=== PATIENT | female | born 1990 | race African-American/Black ===

== ENCOUNTER → 2017-07-15 | Outpatient (REF) | payer OTHER ==
[2017-07-15 18:47] LABS: ALBUMIN/GLOBULIN RATIO 1.14 (1.00-1.93); ALKALINE PHOSPHATASE 63 U/L (45-117); ALT/SGPT 20 U/L (12-78); ANION GAP 8 MEQ/L (8-16); AST/SGOT 17 U/L (7-37); BILIRUBIN,TOTAL 0.7 MG/DL (0.2-1.0); BLOOD UREA NITROGEN 11 MG/DL (7-18); CALCIUM LEVEL 8.8 MG/DL (8.5-10.1); CARBON DIOXIDE LEVEL 25 MEQ/L (21-32); CHLORIDE LEVEL 108 MEQ/L (98-107); CHOLESTEROL LEVEL 141 MG/DL (<200); CREATININE FOR GFR 0.63 MG/DL (0.55-1.30); GLOMERULAR FILTRATION RATE > 60.0 (>60); GLUCOSE, FASTING 87 MG/DL (70-100); HDL CHOLESTEROL 47 MG/DL (>40); LDL CHOLESTEROL 80.4 MG/DL (<100); NON-HDL-C 94 MG/DL; POTASSIUM SERUM 4.7 MEQ/L (3.5-5.1); SODIUM LEVEL 141 MEQ/L (136-145); TOTAL PROTEIN 7.5 GM/DL (6.4-8.2); TRIGLYCERIDES LEVEL 68 MG/DL (<150)
[2017-07-15 19:01] LABS: ESTIMATED AVERAGE GLUCOSE 111 MG/DL (60-110); HEMOGLOBIN A1c 5.5 %
== END ==
LOC: M SFHCLERA 10:52
DX: E66.01 Morbid (severe) obesity due to excess calories (principal)
CPT/HCPCS: 84443

== ENCOUNTER → 2017-08-26 | Outpatient (REF) | payer OTHER | LOC: M SFHCLERA 09:42 | DX: Z01.411 Encounter for gynecological examination (general) (routine) with abnormal findings (principal); R87.5 Abnormal microbiological findings in specimens from female genital organs | CPT/HCPCS: G0123 ==

== ENCOUNTER → 2018-01-19 | Outpatient (REF) | payer OTHER ==
[2018-01-19 16:59] LABS: HEMATOCRIT 38.2 % (36.0-47.0); MEAN CORPUSCULAR HGB CONC 31.4 g/dl (32.0-36.5); MEAN CORPUSCULAR VOLUME 82.7 fl (80.0-96.0); PLATELET COUNT, AUTOMATED 360 10^3/uL (150-450); RED BLOOD COUNT 4.62 10^6/uL (4.00-5.40); RED CELL DISTRIBUTION WIDTH 12.7 % (11.5-14.5); WHITE BLOOD COUNT 4.6 10^3/uL (4.0-10.0)
[2018-01-19 17:01] LABS: ALBUMIN 4.1 GM/DL (3.2-5.2); ALBUMIN/GLOBULIN RATIO 1.21 (1.00-1.93); ALKALINE PHOSPHATASE 67 U/L (45-117); ALT/SGPT 21 U/L (12-78); ANION GAP 6 MEQ/L (8-16); AST/SGOT 14 U/L (7-37); BILIRUBIN,TOTAL 0.6 MG/DL (0.2-1.0); BLOOD UREA NITROGEN 10 MG/DL (7-18); CALCIUM LEVEL 9.3 MG/DL (8.5-10.1); CARBON DIOXIDE LEVEL 26 MEQ/L (21-32); CHLORIDE LEVEL 106 MEQ/L (98-107); GLOMERULAR FILTRATION RATE > 60.0 (>60); GLUCOSE, FASTING 87 MG/DL (70-100); POTASSIUM SERUM 4.5 MEQ/L (3.5-5.1); SODIUM LEVEL 138 MEQ/L (136-145); TOTAL PROTEIN 7.5 GM/DL (6.4-8.2)
[2018-01-19 17:02] LABS: INR 1.04; PROTHROMBIN TIME 13.7 SECONDS (12.1-14.4)
== END ==
LOC: M SFHCLERA 10:56
DX: Z01.818 Encounter for other preprocedural examination (principal)

== ENCOUNTER → 2018-09-03 | Outpatient (CLI) | payer OTHER ==
[2018-09-03 20:11] LABS: BASO % 0.7 % (0.0-1.0); EOS # 0.1 10^3/uL (0.0-0.50); EOS % 1.9 % (0.0-3.0); HEMATOCRIT 36.6 % (36.0-47.0); HEMOGLOBIN 11.5 g/dl (12.0-15.5); LYMPH # 1.9 10^3/uL (1.5-6.5); LYMPH % 43.1 % (24.0-44.0); MEAN CORPUSCULAR HEMOGLOBIN 26.4 pg (27.0-33.0); MEAN CORPUSCULAR HGB CONC 31.4 g/dl (32.0-36.5); MEAN CORPUSCULAR VOLUME 84.1 fl (80.0-96.0); MONO # 0.5 10^3/uL (0.0-0.8); NEUTROPHILS # 1.9 10^3/uL (1.8-7.7); NEUTROPHILS % 43.3 % (36.0-66.0); PLATELET COUNT, AUTOMATED 325 10^3/uL (150-450); RED BLOOD COUNT 4.35 10^6/uL (4.00-5.40); WHITE BLOOD COUNT 4.3 10^3/uL (4.0-10.0)
[2018-09-03 20:12] LABS: ALBUMIN 3.9 GM/DL (3.2-5.2); ALT/SGPT 18 U/L (12-78); BILIRUBIN,TOTAL 0.6 MG/DL (0.2-1.0); BLOOD UREA NITROGEN 13 MG/DL (7-18); CALCIUM LEVEL 9.1 MG/DL (8.5-10.1); CARBON DIOXIDE LEVEL 28 MEQ/L (21-32); CHLORIDE LEVEL 106 MEQ/L (98-107); CREATININE FOR GFR 0.71 MG/DL (0.55-1.30); FERRITIN 96 NG/ML (8-252); GLOMERULAR FILTRATION RATE > 60.0 (>60); GLUCOSE, FASTING 82 MG/DL (70-100); IRON (FE) 76 UG/DL (50-170); MAGNESIUM LEVEL 2.2 MG/DL (1.8-2.4); PERCENT SATURATION 27.5 % (13.2-45.0); PHOSPHORUS LEVEL 3.5 MG/DL (2.5-4.9); POTASSIUM SERUM 4.6 MEQ/L (3.5-5.1); SODIUM LEVEL 140 MEQ/L (136-145); TOTAL IRON BINDING CAPACITY 276 UG/DL (250-450); TOTAL PROTEIN 7.3 GM/DL (6.4-8.2)
[2018-09-03 20:15] LABS: HEMATOCRIT 36.6 % (36.0-47.0)
[2018-09-03 20:22] LABS: TOTAL 25(OH) VITAMIN D 17.3 NG/ML (30.0-100.0); VITAMIN B12 LEVEL 515 PG/ML (247-911)
[2018-09-03 20:42] LABS: HEMOGLOBIN A1c 5.4 %
== END ==
LOC: M LRY 16:26
PROVIDERS: ATTEND Physician Assistant
DX: K91.2 Postsurgical malabsorption, not elsewhere classified (principal); Z98.84 Bariatric surgery status; E55.9 Vitamin D deficiency, unspecified

== ENCOUNTER 2018-11-14 14:47 | Inpatient (IN) | payer OTHER ==
[~2018-11-14] VITALS: Ht 154.9 cm; Wt 91.4 kg
[2018-11-14 15:52] LABS: BASO % 0.2 % (0.0-1.0); EOS # 0.1 10^3/uL (0.0-0.5); EOS % 0.7 % (0.0-3.0); HEMATOCRIT 35.9 % (36.0-47.0); HEMOGLOBIN 11.3 g/dl (12.0-15.5); LYMPH # 1.4 10^3/uL (1.5-5.0); LYMPH % 14.7 % (24.0-44.0); MEAN CORPUSCULAR HEMOGLOBIN 26.5 pg (27.0-33.0); MEAN CORPUSCULAR HGB CONC 31.5 g/dl (32.0-36.5); MEAN CORPUSCULAR VOLUME 84.3 fl (80.0-96.0); MONO # 1.3 10^3/uL (0.0-0.8); MONO % 13.8 % (0.0-5.0); NEUTROPHILS # 6.9 10^3/uL (1.5-8.5); NEUTROPHILS % 70.3 % (36.0-66.0); PLATELET COUNT, AUTOMATED 345 10^3/uL (150-450); RED BLOOD COUNT 4.26 10^6/uL (4.00-5.40); WHITE BLOOD COUNT 9.7 10^3/uL (4.0-10.0)
[2018-11-14 16:37] LABS: BLOOD UREA NITROGEN 8 MG/DL (7-18); CALCIUM LEVEL 9.2 MG/DL (8.5-10.1); CARBON DIOXIDE LEVEL 27 MEQ/L (21-32); CHLORIDE LEVEL 104 MEQ/L (98-107); CREATININE FOR GFR 0.75 MG/DL (0.55-1.30); GLOMERULAR FILTRATION RATE > 60.0 (>60); GLUCOSE, FASTING 93 MG/DL (70-100); POTASSIUM SERUM 4.3 MEQ/L (3.5-5.1); SODIUM LEVEL 135 MEQ/L (136-145)
[2018-11-14] MEDS ORDERED: ISOVUE-370 76% 100ML VIAL (Q9967) As Ordered ONE (16:40)
--- NOTE | 2018-11-14 17:02 | REP ---
Clinical: Cellulitis. Rule out abscess. Technique: Axial contrast enhanced images of the pelvis with coronal and sagittal re-formations using 100 ml Isovue 370 intravenous contrast material. Findings: There is a phlegmonous collection with surrounding subcutaneous infiltration and skin induration at the midline gluteal region (images 35-65) which is consistent with cellulitis and possible forming abscess. No drainable collection/discrete abscess is yet formed. Remainder of the pelvis including bladder, uterus with IUD, bilateral adnexa, and visualized portions of the small and large bowel appear normal. Normal appendix identified in the right lower quadrant. Visualized vascular structures are normal. Osseous structures are intact. Impression: Findings suggest cellulitis with focal area of phlegmon. No obvious discrete drainable collection/abscess is appreciated by current examination. Electronically Signed by Yonatan Alexandra MD 11/14/2018 04:53 P
[2018-11-14] MEDS ORDERED: CLEO300C2 PO (18:28)
--- NOTE | 2018-11-14 18:38 | HPEPDOC ---
General Date of Admission 11/14/2018 Date of Service: Nov 14, 2018 Chief Complaint The patient is a 28-year-old female who presented to the emergency room after failing antibiotic treatment for of midline gluteal cellulitis History of Present Illness Patient is a 28-year-old female with no significant PMHx who presented to the ER after failing antibiotic therapy. Patient reports that last Thursday she began to experience pain with sitting that continued to worsen. She had noticed that she had swelling around the top of her gluteal cleft. Patient reported that she had visited urgent care for antibiotic therapy and was prescribed Bactrim. Patient had failed to improve with antibiotic therapy and subsequently had a follow-up physical on Thursday, and her antibiotics were changed to clindamycin. Patient has failed to improve with new antibiotic therapy and his come to the emergency room for further evaluation. Patient reports that shes been experiencing fevers and chills. Temperature noted was on Thursday at 101.0 Fahrenheit. Patient denies nausea, vomiting, chest pain, shortness breath, palpitations, abdominal pain, diarrhea or discomfort with urination. Patient does report constipation for 1 week duration. Patient reports a poor appetite but is unaware of any recent change in her weight. Home Medications Scheduled Clindamycin Hcl (Cleocin HCl) 300 Mg Capsule, 300 MG PO Q8H, (Reported) STARTED 11/13/18 Allergies Coded Allergies: No Known Allergies (Unverified , 11/14/18) Past Medical History Medical History Patient denies any past medical history Surgical History Patient has had a gastric sleeve procedure performed February 2018 and has had a weight loss of 45 pounds since that point Family History - Mother with history of high blood pressure - Fathers medical history is unknown Social History - Denies the use of alcohol, tobacco or illicit drugs - Denies recent travel or sick contacts - Lives with and 3 children - Occupation; currently unemployed Review of Systems Other systems 10 point review of systems complete, all negative otherwise stated in HPI Vital Signs - Vitals: BP 131/74, HR 97, RR 16, Sat 99%RA, Temp 98.1F - General: Lying in bed, No acute distress, Speaking in full sentences, AAOx3 - HEENT: NC, AT, PERRLA, EOMI - CVS: RRR, +S1S2, - Murmurs / rubs / gallops - Lungs: Fair air entry bilaterally, No appreciable wheezing / rales / rhonchi - Abdomen: Soft, Non-distended, Non-tender - Extremities: No lower extremity edema, No calf tenderness - Neuro: No focal motor or sensory deficit - Skin: Bilateral sides of gluteal cleft with induration, swelling and tenderness, no appreciable drainage, midline superior gluteal cleft without any swelling, induration or tenderness noted Laboratory Data Labs 24H Laboratory Tests 2 11/14/18 15:34: Immature Granulocyte % (Auto) 0.3, White Blood Count 9.7, Red Blood Count 4.26, Hemoglobin 11.3L, Hematocrit 35.9L, Mean Corpuscular Volume 84.3, Mean Corpuscular Hemoglobin 26.5L, Mean Corpuscular Hemoglobin Concent 31.5L, Red Cell Distribution Width 12.3, Platelet Count 345, Neutrophils (%) (Auto) 70.3H, Lymphocytes (%) (Auto) 14.7L, Monocytes (%) (Auto) 13.8H, Eosinophils (%) (Auto) 0.7, Basophils (%) (Auto) 0.2, Neutrophils # (Auto) 6.9, Lymphocytes # (Auto) 1.4L, Monocytes # (Auto) 1.3H, Eosinophils # (Auto) 0.1, Basophils # (Auto) 0.0, Nucleated Red Blood Cells % (auto) 0.0, Anion Gap 4L, Glomerular Filtration Rate > 60.0, Blood Urea Nitrogen 8, Creatinine 0.75, Sodium Level 135L, Potassium Level 4.3, Chloride Level 104, Carbon Dioxide Level 27, Calcium Level 9.2 CBC/BMP Laboratory Tests 11/14/18 15:34 Red Blood Count 4.26, Mean Corpuscular Volume 84.3, Mean Corpuscular Hemoglobin 26.5 L, Mean Corpuscular Hemoglobin Concent 31.5 L, Red Cell Distribution Width 12.3, Neutrophils (%) (Auto) 70.3 H, Lymphocytes (%) (Auto) 14.7 L, Monocytes (%) (Auto) 13.8 H, Eosinophils (%) (Auto) 0.7, Basophils (%) (Auto) 0.2, Neutrophils # (Auto) 6.9, Lymphocytes # (Auto) 1.4 L, Monocytes # (Auto) 1.3 H, Eosinophils # (Auto) 0.1, Basophils # (Auto) 0.0, Calcium Level 9.2 Plan / VTE VTE Prophylaxis Ordered?: Yes Plan Plan Gluteal phlegmon - Patient has failed antibiotic therapy as an outpatient with Bactrim and clindamycin - As an outpatient, she has reported fevers and chills - Has presented to the ER with gluteal cleft swelling; no drainage noted - No significant leukocytosis - CT abdomen / pelvis 11/14: Findings suggest cellulitis with focal area of phlegmon. No obvious discrete drainable collection/abscess is appreciated by current examination. - Will admit the patient for IV antibiotic therapy with Ceftaroline (MRSA coverage) after failing oral therapy as an outpatient - Case has been discussed with general surgery, Dr. Rao - will evaluate the patient on consultation Normocytic anemia - Hemoglobin appears to be at baseline compared to 3 months prior - Will continue to monitor DVT prophylaxis - Will start SANIA Gibson MD Nov 14, 2018 18:38
[2018-11-14] MEDS: NS 1,000 ML IV SCH (19:45)
[2018-11-14] MEDS: CEFTAROLINE FOSAMIL 600 MG in D5W MINI-BAG PLUS 50 ML IV SCH (19:45)
[2018-11-14 20:05] VITALS: BP 130/86
[2018-11-14] MEDS: ACETAMINOPHEN TAB 650MG DOSE (2X325MG) PO PRN ×2 (20:36→21:31)
[2018-11-15] VITALS (9 sets, daily range): BP systolic 101–121; BP diastolic 58–73
[2018-11-15] MEDS: ACETAMINOPHEN TAB 650MG DOSE (2X325MG) PO PRN ×2 (06:03→20:37)
[2018-11-15] MEDS: NS 1,000 ML IV SCH ×2 (06:08→20:00)
[2018-11-15] MEDS: CEFTAROLINE FOSAMIL 600 MG in D5W MINI-BAG PLUS 50 ML IV SCH ×2 (06:41→17:36)
[2018-11-15 08:41] LABS: BASO % 0.4 % (0.0-1.0); EOS # 0.1 10^3/uL (0.0-0.5); EOS % 0.6 % (0.0-3.0); HEMATOCRIT 32.3 % (36.0-47.0); HEMOGLOBIN 10.3 g/dl (12.0-15.5); LYMPH # 2.3 10^3/uL (1.5-5.0); LYMPH % 23.9 % (24.0-44.0); MEAN CORPUSCULAR HEMOGLOBIN 26.1 pg (27.0-33.0); MEAN CORPUSCULAR HGB CONC 31.9 g/dl (32.0-36.5); MONO # 1.1 10^3/uL (0.0-0.8); MONO % 11.8 % (0.0-5.0); NEUTROPHILS # 6.1 10^3/uL (1.5-8.5); PLATELET COUNT, AUTOMATED 352 10^3/uL (150-450); RED BLOOD COUNT 3.94 10^6/uL (4.00-5.40); WHITE BLOOD COUNT 9.6 10^3/uL (4.0-10.0)
--- NOTE | 2018-11-15 08:44 | IPNPDOC ---
Subjective Date Seen The patient was seen on 11/15/18. Subjective Chief Complaint/HPI Patient reported pos for fever, chills, and pain in the gluteal region in b/l buttocks. Reported mild lightheadedness when standing for long time; denies any chest pain, palpitation, N/V, abd pain, diarrhea, or blood in stool. Pt reported she had 1 bowel movement today. Denies seeing any skin breakdown/opening prior to hospital admission General: Reports: Chills, Night Sweats Constitutional: Reports: Chills, Fever, Night Sweats Skin: Reports: Other (Denies drainage or skin opening); Denies: Breakdown Pulmonary: Denies: Dyspnea Cardiovascular: Denies: Chest Pain, Palpitations Gastrointestinal: Denies: Nausea, Vomiting, Abdominal Pain, Diarrhea, Hematochezia Musculoskeletal: Reports: Other Symptoms (buttock pain) Objective Physical Examination General Exam: Positive: Alert, Cooperative, No Acute Distress, Mild Distress Eye Exam: Positive: Conjunctiva & lids normal ENT Exam: Positive: Atraumatic, Mucous membr. moist/pink Neck Exam: Positive: Supple Chest Exam: Positive: Clear to auscultation, Normal air movement; Negative: Rales, Rhonchi, Wheezing Heart Exam: Positive: Tachycardic, Regular Rhythm; Negative: Murmurs Abdomen Exam: Positive: Normal bowel sounds, Soft; Negative: Tenderness Extremity Exam: Positive: Normal pulses Skin Exam: Positive: Other skin issue (No obvious erythema noted; areas of induration/fullness palpable in b/l buttock region near midline/gluteal cleft with tenderness to palpation); Negative: Breakdown Neuro Exam: Positive: Normal Speech Psych Exam: Positive: Mental status NL, Mood NL, Memory Intact, Oriented x 3 Assessment /Plan Assessment 1. Gluteal phlegmon likely 2/2 pilonidal cyst - Fever and chills prior to admission reported; S/p failed antibiotic therapy as an outpatient with Bactrim and clindamycin - Has presented to the ER with gluteal cleft swelling; no drainage noted - No significant leukocytosis - CT abd/pelvis 11/14 suggested cellulitis with focal area of phlegmon. No obvious skin opening/drainage/abscess on exam - Cont pt on IV Ceftaroline for MRSA coverage at this time after failing oral therapy as an outpatient. MRSA PCR pending. - Fever and chills. RR and BP stable w/o mental status change. Blood cx X2 pend ing. - General surgery Dr. Rao consulted-planned OR procedure/I&D for gluteal phlegmon 2. Normocytic anemia - 11.3 to 10.3 today. Hemoglobin 09/01 at 11.5 - Pt reported mild dizziness with prolonged standing; denies any dyspnea or blood in stool. Currently hemodynamically stable - Plt wnl. Will continue to monitor, recommend f/u outpt DVT prophylaxis -Cont Lovenox Plan/VTE VTE Prophylaxis Ordered?: Yes VS, I&O, 24H, Fishbone Vital Signs/I&O Vital Signs Date Time Temp Pulse Resp B/P (MAP) Pulse Ox O2 Delivery O2 Flow Rate FiO2 11/15/18 06:00 100.5 109 18 101/60 (74) 99 11/14/18 19:22 Room Air I&O- Last 24 Hours up to 6 AM 11/15/18 06:00 Intake Total 950 ml Balance 950 ml Laboratory Data 24H LABS Laboratory Tests 2 11/14/18 15:34: Immature Granulocyte % (Auto) 0.3, White Blood Count 9.7, Red Blood Count 4.26, Hemoglobin 11.3L, Hematocrit 35.9L, Mean Corpuscular Volume 84.3, Mean Corpu scular Hemoglobin 26.5L, Mean Corpuscular Hemoglobin Concent 31.5L, Red Cell Distribution Width 12.3, Platelet Count 345, Neutrophils (%) (Auto) 70.3H, Lymphocytes (%) (Auto) 14.7L, Monocytes (%) (Auto) 13.8H, Eosinophils (%) (Auto) 0.7, Basophils (%) (Auto) 0.2, Neutrophils # (Auto) 6.9, Lymphocytes # (Auto) 1.4L, Monocytes # (Auto) 1.3H, Eosinophils # (Auto) 0.1, Basophils # (Auto) 0.0, Nucleated Red Blood Cells % (auto) 0.0, Anion Gap 4L, Glomerular Filtration Rate > 60.0, Blood Urea Nitrogen 8, Creatinine 0.75, Sodium Level 135L, Potassium Level 4.3, Chloride Level 104, Carbon Dioxide Level 27, Calcium Level 9.2 11/15/18 07:57: CBC/BMP Laboratory Tests 11/14/18 15:34 Red Blood Count 4.26, Mean Corpuscular Volume 84.3, Mean Corpuscular Hemoglobin 26.5 L, Mean Corpuscular Hemoglobin Concent 31.5 L, Red Cell Distribution Width 12.3, Neutrophils (%) (Auto) 70.3 H, Lymphocytes (%) (Auto) 14.7 L, Monocytes (%) (Auto) 13.8 H, Eosinophils (%) (Auto) 0.7, Basophils (%) (Auto) 0.2, Neutrophils # (Auto) 6.9, Lymphocytes # (Auto) 1.4 L, Monocytes # (Auto) 1.3 H, Eosinophils # (Auto) 0.1, Basophils # (Auto) 0.0, Calcium Level 9.2 GME ATTESTATION GME ATTESTATION My faculty preceptor for this patient encounter was physically present during the encounter and was fully available. All aspects of the patient interview, examination, medical decision making process, and medical care plan development were reviewed and approved by the faculty preceptor. The faculty preceptor is aware and concurs with the plan as stated in the body of this note and will attest to such by his/her cosignature. ATTENDING NOTE I, Mary Anne Owusu, have independently examined this patient and performed my own physical exam, as well as reviewed the documentation and edited where necessary. I have discussed in detail with the resident / student the findings and plan of treatment as documented by the resident / student and edited their note. I agree with their findings and treatment plan and have edited their documentation. I will continue to follow the patient during this hospital stay. YOUNG SINGLETON DO Nov 15, 2018 08:44 MARY ANNE OWUSU MD Nov 15, 2018 14:43
[2018-11-15] MEDS: ENOXAPARIN 40 MG/0.4 ML SYRINGE (J1650) SC SCH (09:00)
[2018-11-15 09:01] LABS: BLOOD UREA NITROGEN 8 MG/DL (7-18); CALCIUM LEVEL 8.7 MG/DL (8.5-10.1); CARBON DIOXIDE LEVEL 26 MEQ/L (21-32); CHLORIDE LEVEL 107 MEQ/L (98-107); CREATININE FOR GFR 0.72 MG/DL (0.55-1.30); GLOMERULAR FILTRATION RATE > 60.0 (>60); GLUCOSE, FASTING 102 MG/DL (70-100); MAGNESIUM LEVEL 2.2 MG/DL (1.8-2.4); POTASSIUM SERUM 4.1 MEQ/L (3.5-5.1); SODIUM LEVEL 138 MEQ/L (136-145)
--- NOTE | 2018-11-15 10:26 | CR.PDOC ---
General Surgery Consultation Date of Consultation 11/15/18 History and Physical CONSULT REPORT FOR: Dr. Longoira (Hospitalist service) REASON FOR CONSULTATION: gluteal cellulits?cyst?abscess HISTORY OF PRESENT ILLNESS: Patient admitted to the hospital yesterday for failing to improve the cellulitis on both her upper gluteal area with oral antibiotics. She has had this for about a week according to her. Started Thursday with pain and swelling and sensation of episodes of fever at home. He was worked up in the emergency room was found area of phlegmon at the top portion of her gluteal area and subsequently admitted for antibiotic treatment. I was asked to evaluate the patient for possibility of an abscess that would require drainage. PAST MEDICAL HISTORY: 1. No chronic medical problems. PAST SURGICAL HISTORY: INCLUDES: 1. Gastric sleeve procedure February 2018. PREVIOUS ANESTHESIA REACTIONS: Denies ALLERGIES: Please see below. FAMILY HISTORY: Noncontributory. HOME MEDICATIONS: Please see below. REVIEW OF SYSTEMS: GENERAL: Patient reports fever, gluteal pain for 1 week. HEENT: Denies blurred vision and double vision. Denies ear symptoms. Denies hoarseness. NECK: Denies any neck pain CARDIOVASCULAR: Denies chest pain and palpitations. MUSCULOSKELETAL: Denies arthralgias, back pain and thrombophlebitis. SKIN: Denies rash. NEUROLOGIC: Denies headache, stroke and transient ischemic attack. PSYCHIATRIC: Denies anxiety and depression. ENDOCRINE: Denies thyroid disease. HEMATOLOGY/ONCOLOGY: Denies bleeding or clotting disorder. HEART: Denies any chest pains, palpitations, paroxysmal dyspnea, orthopnea. PULMONARY: Denies chronic cough, dyspnea and wheezing. GASTROINTESTINAL: Denies rectal bleeding, family history of colon cancer, constipation, diarrhea, dysphagia, heartburn and jaundice. GENITOURINARY: Denies dysuria, frequency, hematuria and nocturia. ENDOCRINE: Denies polydipsia, polyphagia, polyuria, heat or cold intolerance. INFECTIOUS: Patient has been on Bactrim and clindamycin for the past week. NUTRITION: Fair appetite. Weight loss of about 45 pounds since her gastric sleeve surgery. PHYSICAL EXAMINATION: VITALS SIGNS: Please see below. GENERAL APPEARANCE: Looks comfortable. SKIN: Warm and moist. HEENT: Normocephalic, atraumatic. [place] palpebral conjunctiva, anicteric sclerae. Lips and mucosa appear moist. NECK: Supple, no thyromegaly. No obvious jugular venous distention. LUNGS: Clear to auscultation bilaterally. No wheezing appreciated. HEART: No chest wall abnormalities. Regular rate and rhythm with no murmurs appreciated. ABDOMEN: Abdomen is nondistended, soft, nontender Examination of her gluteal area shows an area of slight erythema more in the left than on the right, warmth, fullness at the subcutaneous tissue more on the top upper gluteal area but slightly so on the right tender on palpation. No gross skin thinning or drainage.. EXTREMITIES: Extremities have no deformities. No edema identified ANCILLARIES: . LABORATORY DATA: Please see below. IMAGING STUDIES: CT pelvis Findings suggest cellulitis with focal area of phlegmon. No obvious discrete drainable collection/abscess is appreciated by current examination. IMPRESSION AND PLAN: cellulitis and soft tissue phlegmon on gluteal area possibly pilonidal abscess. She has fullness on the soft tissue on both upper portion of the gluteus at about the sacral level. On CT the phlegmon or inflammation seems to be midline which will be more a pilonidal abscess. I think she will benefit from opening that area up as more often than not she will have a small collection of either abscess or necrotic tissue in there. I will bring her to the OR for exam under anesthesia and drainage of abscess. Vital Signs Vital Signs Date Time Temp Pulse Resp B/P (MAP) Pulse Ox O2 Delivery O2 Flow Rate FiO2 11/15/18 06:00 100.5 109 18 101/60 (74) 99 11/14/18 19:22 Room Air I&Os I&O- Last 24 Hours up to 6 AM 11/15/18 06:00 Intake Total 950 ml Balance 950 ml Laboratory Data Labs 24H Laboratory Tests 2 11/14/18 15:34: Immature Granulocyte % (Auto) 0.3, White Blood Count 9.7, Red Blood Count 4.26, Hemoglobin 11.3L, Hematocrit 35.9L, Mean Corpuscular Volume 84.3, Mean Corpuscular Hemoglobin 26.5L, Mean Corpuscular Hemoglobin Concent 31.5L, Red Cell Distribution Width 12.3, Platelet Count 345, Neutrophils (%) (Auto) 70.3H, Lymphocytes (%) (Auto) 14.7L, Monocytes (%) (Auto) 13.8H, Eosinophils (%) (Auto) 0.7, Basophils (%) (Auto) 0.2, Neutrophils # (Auto) 6.9, Lymphocytes # (Auto) 1.4L, Monocytes # (Auto) 1.3H, Eosinophils # (Auto) 0.1, Basophils # (Auto) 0.0, Nucleated Red Blood Cells % (auto) 0.0, Anion Gap 4L, Glomerular Filtration Rate > 60.0, Blood Urea Nitrogen 8, Creatinine 0.75, Sodium Level 135L, Potassium Level 4.3, Chloride Level 104, Carbon Dioxide Level 27, Calcium Level 9.2 11/15/18 07:57: Immature Granulocyte % (Auto) 0.3, White Blood Count 9.6, Red Blood Count 3.94L, Hemoglobin 10.3L, Hematocrit 32.3L, Mean Corpuscular Volume 82.0, Mean Corpuscular Hemoglobin 26.1L, Mean Corpuscular Hemoglobin Concent 31.9L, Red Cell Distribution Width 12.1, Platelet Count 352, Neutrophils (%) (Auto) 63.0, Lymphocytes (%) (Auto) 23.9L, Monocytes (%) (Auto) 11.8H, Eosinophils (%) (Auto) 0.6, Basophils (%) (Auto) 0.4, Neutrophils # (Auto) 6.1, Lymphocytes # (Auto) 2.3, Monocytes # (Auto) 1.1H, Eosinophils # (Auto) 0.1, Basophils # (Auto) 0.0, Nucleated Red Blood Cells % (auto) 0.0, Anion Gap 5L, Glomerular Filtration Rate > 60.0, Blood Urea Nitrogen 8, Creatinine 0.72, Sodium Level 138, Potassium Level 4.1, Chloride Level 107, Carbon Dioxide Level 26, Calcium Level 8.7, Magnesium Level 2.2 11/15/18 08:59: CBC/BMP Laboratory Tests 11/14/18 15:34 Red Blood Count 4.26, Mean Corpuscular Volume 84.3, Mean Corpuscular Hemoglobin 26.5 L, Mean Corpuscular Hemoglobin Concent 31.5 L, Red Cell Distribution Width 12.3, Neutrophils (%) (Auto) 70.3 H, Lymphocytes (%) (Auto) 14.7 L, Monocytes (%) (Auto) 13.8 H, Eosinophils (%) (Auto) 0.7, Basophils (%) (Auto) 0.2, Neutrophils # (Auto) 6.9, Lymphocytes # (Auto) 1.4 L, Monocytes # (Auto) 1.3 H, Eosinophils # (Auto) 0.1, Basophils # (Auto) 0.0, Calcium Level 9.2 11/15/18 07:57 Red Blood Count 3.94 L, Mean Corpuscular Volume 82.0, Mean Corpuscular Hemoglobin 26.1 L, Mean Corpuscular Hemoglobin Concent 31.9 L, Red Cell Distri bution Width 12.1, Neutrophils (%) (Auto) 63.0, Lymphocytes (%) (Auto) 23.9 L, Monocytes (%) (Auto) 11.8 H, Eosinophils (%) (Auto) 0.6, Basophils (%) (Auto) 0.4, Neutrophils # (Auto) 6.1, Lymphocytes # (Auto) 2.3, Monocytes # (Auto) 1.1 H, Eosinophils # (Auto) 0.1, Basophils # (Auto) 0.0, Calcium Level 8.7 Home Medications Scheduled Clindamycin Hcl (Cleocin HCl) 300 Mg Capsule, 300 MG PO Q8H, (Reported) STARTED 11/13/18 Allergies Coded Allergies: No Known Allergies (Unverified , 11/14/18) PATY ALONSO MD Nov 15, 2018 10:26
[2018-11-15] MEDS ORDERED: BUPIVACAINE HCL 0.25% 10 ML VIAL As Ordered ONE (16:54)
[2018-11-15] MEDS ORDERED: LIDOCAINE W/EPINEPHRINE 1% 20ML VIAL As Ordered ONE (16:54)
[2018-11-15] MEDS ORDERED: HYDROMORPHONE HCL 0.5 MG/ 0.5 ML SYRINGE (J1170 PER 1) IV PRN (18:15)
[2018-11-15] MEDS ORDERED: fentaNYL 100 MCG/2 ML INJECTION (J3010) IV PRN (18:15)
[2018-11-15] MEDS ORDERED: ONDANSETRON 4MG/2ML VIAL (J2405) IV PRN (18:15)
[2018-11-15] MEDS ORDERED: LR 1,000 ML IV SCH (18:15)
[2018-11-16] MEDS: ACETAMINOPHEN TAB 650MG DOSE (2X325MG) PO PRN ×2 (04:24→14:53)
--- NOTE | 2018-11-16 05:52 | ROOPDOC ---
[facility] Report Of Operation Report of Operation DATE OF PROCEDURE: 11/15/18 PREPROCEDURE DIAGNOSES: Bilateral gluteal abscess versus pilonidal abscess. POSTPROCEDURE DIAGNOSES: I suspect pilonidal abscess. PROCEDURE: Incision and drainage of pilonidal abscess at the top of the gluteal cleft. SURGEON: Anurag Rao MD ANESTHESIA: Spinal anesthesia. ESTIMATED BLOOD LOSS: Approximately 20 mL. COMPLICATIONS: None. REMARKS: Healthy 28-year-old female with one-week history of pain and swelling on both the top of her gluteal cleft and bilateral gluteal area, was given antibiotics without any resolution of her symptoms and was noted to be having fevers and subsequently admitted to the hospital. PROCEDURE NOTE: Soft tissue induration involving both the left and the right. Gluteal area, appearing more prominent over the left gluteal area. Minimal skin erythema. Deep gluteal cleft. On opening up the area to the left of the midline there is a pocket of abscess at the midline which extends to the right and less to the left side of the gluteus. The left side has mostly indurated tissue and inflamed adipose tissue which were opened up and connected to the midline wound. This was then packed with 1 inch iodoform gauze.. DESCRIPTION OF PROCEDURE: . ANURAG RAO MD Nov 16, 2018 05:52
[2018-11-16 06:00] VITALS: BP 115/56
[2018-11-16] MEDS: CEFTAROLINE FOSAMIL 600 MG in D5W MINI-BAG PLUS 50 ML IV SCH (06:17)
[2018-11-16] MEDS: NS 1,000 ML IV SCH (06:17)
[2018-11-16] MEDS: ENOXAPARIN 40 MG/0.4 ML SYRINGE (J1650) SC SCH (08:00)
[2018-11-16] MEDS ORDERED: DOXY-350 PO (09:56)
[2018-11-16] MEDS ORDERED: ACET1TAB55 PO (09:56)
[2018-11-16 10:00] VITALS: BP 105/60
--- NOTE | 2018-11-16 11:54 | DS.PDOC ---
Discharge Summary General Date of Admission Nov 14, 2018 at 18:31 Date of Discharge 11/16/18 Discharge Summary PROCEDURES PERFORMED DURING STAY: I&D of pilonidal cyst ADMITTING DIAGNOSES: 1. Gluteal phlegmon 2. Normocytic anemia DISCHARGE DIAGNOSES: 1. Gluteal phlegmon likely 2/2 pilonidal cyst, s/p I&D 2. Normocytic anemia COMPLICATIONS/CHIEF COMPLAINT: Cellulitis Of Gluteal Region. HISTORY OF PRESENT ILLNESS: Patient is a 28 yo female with no significant PMHx presented to [facility] ER with gradually worsening pain and swelling around top of gluteal cleft starting 11/07/18 after failing antibiotic therapy. Patient went urgent care prior to ER visit and was prescribed Bactrim without symptoms improvement; she subsequently had a follow-up physical on Thursday, and her antibiotics were changed to clindamycin without improvement. Patient reported fevers and chills with temp on Thursday at 101.F noted. She denied any nausea, vomiting, chest pain, dyspnea, palpitations, abdo pain, diarrhea or discomfort with urination. HOSPITAL COURSE: Pt was noted to have bilateral sides of gluteal cleft with induration, swelling and tenderness. CT pelvis showed focal area of phlegmon. No obvious discrete drainable collection or abscess was appreciated by current examination.She was admitted to hospital and started with IV Ceftaroline; general surgery was consulted and pt underwent I&D. No fever was noted since 11/16/18 morning. After discussion with surgery team pt was determined to be ready for discharged on 11/16/18 with packing changes daily with iodoform packing strip. DISCHARGE MEDICATIONS: Please see below. ALLERGIES: Please see below. PHYSICAL EXAMINATION ON DISCHARGE: VITAL SIGNS: Please see below. GENERAL: A&OX3, not in acute distress HEENT: Head normocephalic, atraumatic, no scleral icterus or conjunctiva injections NECK: supple CARDIOVASCULAR EXAMINATION: RRR, no murmur, normal S1 and S2 RESPIRATORY EXAMINATION: CTA b/l, no rales, wheezing, or rhonchi ABDOMINAL EXAMINATION: soft, bowel sound aus in all 4 quad, no tenderness, guarding, or distention EXTREMITIES:radial pulse equal b/l SKIN: gluteal region covered with dressings NEUROLOGICAL EXAMINATION: memory and cognitive fxn intact PSYCHIATRIC EXAMINATION: mood appropriate to situation LABORATORY DATA: Please see below. IMAGING: CT pelvis showed cellulitis with focal area of phlegmon PROGNOSIS: Good ACTIVITY: [As tolerated]. DIET: As tolerated DISCHARGE PLAN AND INSTRUCTIONS: Follow up with PCP within 7 days. Follow up with surgery in 2 weeks. Loose packing with iodoform packing strip daily. ITEMS TO FOLLOWUP ON ON OUTPATIENT: 1. Gluteal phlegmon likely 2/2 pilonidal cyst, s/p I&D 2. Normocytic anemia DISCHARGE CONDITION: [Improved]. TIME SPENT ON DISCHARGE: Greater than 30 minutes. Vital Signs/I&Os Vital Signs Date Time Temp Pulse Resp B/P (MAP) Pulse Ox O2 Delivery O2 Flow Rate FiO2 11/16/18 10:00 98.3 87 19 105/60 (75) 97 11/14/18 19:22 Room Air I&O- Last 24 Hours up to 6 AM 11/16/18 05:59 Intake Total 3090 ml Output Total 12 ml Balance 3078 ml Laboratory Data Labs 24H Laboratory Tests 2 11/16/18 09:22: C-Reactive Protein, Quantitative 15.60H Microbiology Microbiology 11/15/18 Blood Culture - Preliminary, Resulted No growth after 24 hours . All specim... 11/15/18 Blood Culture, Received Pending 11/15/18 Gram Stain - Final, Resulted 11/15/18 Abscess Culture, Resulted Pending 11/15/18 Anaerobic Culture, Resulted Pending Discharge Medications Scheduled Doxycycline Monohydrate (Doxycycline) 100 Mg Capsule, 100 MG PO BID Scheduled PRN Acetaminophen (Acetaminophen) 325 Mg Tablet, 650 MG PO Q6HP PRN for PAIN OR FEVER Allergies Coded Allergies: No Known Allergies (Unverified , 11/14/18) YOUNG SINGLETON DO Nov 16, 2018 11:54
[2018-11-16 14:00] VITALS: BP 111/66
== END 2018-11-16 18:02 | disposition home or self-care (01) | DRG 603 ==
LOC: M ED 14:47 → M ED INP 18:31 → M MSPAV 20:03
PROVIDERS: ADMIT Internal Medicine; ATTEND Internal Medicine
PROC: 0H88XZZ Division of Buttock Skin, External Approach (ICD-10-PCS; principal; 2018-11-15 13:00)
DX: L02.31 Cutaneous abscess of buttock (principal); D64.9 Anemia, unspecified

== ENCOUNTER → 2019-01-31 | Outpatient (REF) | payer OTHER ==
[~2019-01-31] MED LIST: ACET1TAB55 PO; CLEO300C2 PO; DOXY-350 PO
== END ==
LOC: M SFHCLERA 11:07
PROVIDERS: ATTEND Family Medicine
DX: D64.9 Anemia, unspecified (principal); E55.9 Vitamin D deficiency, unspecified

== ENCOUNTER → 2019-02-01 | Outpatient (REF) | payer OTHER ==
[2019-02-01 11:48] LABS: BASO % 0.5 % (0.0-1.0); EOS % 0.8 % (0.0-3.0); HEMATOCRIT 38.9 % (36.0-47.0); HEMOGLOBIN 12.2 g/dl (12.0-15.5); LYMPH # 1.6 10^3/uL (1.5-5.0); LYMPH % 41.9 % (24.0-44.0); MEAN CORPUSCULAR HEMOGLOBIN 26.7 pg (27.0-33.0); MEAN CORPUSCULAR HGB CONC 31.4 g/dl (32.0-36.5); MEAN CORPUSCULAR VOLUME 85.1 fl (80.0-96.0); MONO # 0.4 10^3/uL (0.0-0.8); MONO % 11.7 % (0.0-5.0); NEUTROPHILS # 1.7 10^3/uL (1.5-8.5); NEUTROPHILS % 44.8 % (36.0-66.0); PLATELET COUNT, AUTOMATED 327 10^3/uL (150-450); RED BLOOD COUNT 4.57 10^6/uL (4.00-5.40); WHITE BLOOD COUNT 3.8 10^3/uL (4.0-10.0)
[2019-02-01 12:22] LABS: PERCENT SATURATION 24.7 % (13.2-45.0)
[2019-02-01 12:25] LABS: TOTAL 25(OH) VITAMIN D 11.5 NG/ML (30.0-100.0)
[2019-02-01 12:26] LABS: FOLATE 8.3 NG/ML
== END ==
LOC: M SFHCLERA 09:18
PROVIDERS: ATTEND Family Medicine
DX: D64.9 Anemia, unspecified (principal); E55.9 Vitamin D deficiency, unspecified